=== PATIENT | male | born 1985 | race Caucasian/White ===

== ENCOUNTER 2017-06-01 18:12 | Emergency (ER) | payer MEDICARE, MEDICAID ==
--- NOTE | 2017-06-01 19:56 | ER Document Report ---
ED Medical Screen (RME) - General Chief Complaint: Psych Problem Stated Complaint: PSYCH EVAL Time Seen by Provider: 06/01/17 19:55 Notes: Patient lives in a [facility] and has a diagnosis of mild MR OCD and ADHD. Over the last several days patient has been very combative and violent. He was brought here by the [facility] staff for evaluation. TRAVEL OUTSIDE OF THE [place] IN LAST 30 DAYS: No - Related Data Allergies/Adverse Reactions: latex [Latex] Allergy (Severe, Verified 11/20/10 18:56) Urticaria metoclopramide HCl [From Reglan] Allergy (Mild, Verified 11/22/10 18:01) Hives adhesive tape [Adhesive Tape] Adverse Reaction (Mild, Verified 11/21/10 07:22) Generalized rash Past Medical History Neurological Medical History: Denies: Hx Seizures Renal/ Medical History: Denies: Hx Peritoneal Dialysis Physical Exam - Vital signs Vitals: Temp Pulse Resp BP Pulse Ox 98.4 F 102 H 16 151/76 H 97 06/01/17 18:40 06/01/17 18:40 06/01/17 18:40 06/01/17 18:40 06/01/17 18:40 Course - Vital Signs Vital signs: Temp Pulse Resp BP Pulse Ox 98.4 F 102 H 16 151/76 H 97 06/01/17 18:40 06/01/17 18:40 06/01/17 18:40 06/01/17 18:40 06/01/17 18:40
[2017-06-01 20:20] LABS: ABSOLUTE MONOCYTES (AUTO) 0.4 10^3/uL (0.1-1.4); ABSOLUTE NEUT (AUTO) 5.4 10^3/uL (1.7-8.2); BASOPHILS % (AUTO) 0.4 % (0-2); EOSINOPHILS % (AUTO) 0.4 % (0-6); HEMATOCRIT 30.3 % (37.9-51.0); HEMOGLOBIN 9.8 g/dL (13.5-17.0); HGB HCT DIFFERENCE -0.9; LYMPHOCYTES % (AUTO) 14.1 % (13-45); MEAN CORPUSCULAR HEMOGLOBIN 21.2 pg (27.0-33.4); MEAN CORPUSCULAR HGB CONC 32.2 g/dL (32.0-36.0); MEAN CORPUSCULAR VOLUME 66 fl (80-97); RED BLOOD COUNT 4.61 10^6/uL (4.35-5.55); RED CELL DISTRIBUTION WIDTH 17.9 % (11.5-14.0); SEGMENTED NEUTROPHILS % (AUTO) 79.1 % (42-78); WHITE BLOOD COUNT 6.8 10^3/uL (4.0-10.5)
[2017-06-01 20:23] LABS: APPEARANCE,URINE CLEAR; BILIRUBIN,URINE NEGATIVE (NEGATIVE); GLUCOSE, URINE NEGATIVE (NEGATIVE); KETONES,URINE NEGATIVE (NEGATIVE); LEUKOCYTE ESTERASE,URINE NEGATIVE (NEGATIVE); NITRITE,URINE NEGATIVE (NEGATIVE); PROTEIN,URINE NEGATIVE (NEGATIVE); URINE SPECIFIC GRAVITY 1.002; UROBILINOGEN,URINE NEGATIVE mg/dL (<2.0)
[2017-06-01 20:37] LABS: URINE BARBITURATES SCREEN NEGATIVE; URINE METHADONE SCREEN NEGATIVE; URINE OPIATES LOW NEGATIVE; URINE PHENCYCLIDINE SCREEN NEGATIVE
[2017-06-01 21:09] LABS: ALANINE AMINOTRANSFERASE 39 U/L (21-72); ALBUMIN 4.8 g/dL (3.5-5.0); ALKALINE PHOSPHATASE 60 U/L (38-126); ANION GAP 13 (5-19); ASPARTATE AMINO TRANSFERASE 33 U/L (17-59); BILIRUBIN,DIRECT 0.3 mg/dL (0.0-0.4); BILIRUBIN,TOTAL 0.4 mg/dL (0.2-1.3); BLOOD UREA NITROGEN 18 mg/dL (7-20); CALCIUM 9.9 mg/dL (8.4-10.2); CARBON DIOXIDE 27 mmol/L (22-30); CHLORIDE 102 mmol/L (98-107); GLUCOSE 96 mg/dL (75-110); POTASSIUM 4.1 mmol/L (3.6-5.0); SODIUM 141.9 mmol/L (137-145); TOTAL PROTEIN 7.3 g/dL (6.3-8.2)
[2017-06-01 21:10] LABS: ALCOHOL < 10 mg/dL (NONE DETECTED)
[2017-06-01] MEDS ORDERED: HYDROXYZINE PAMOATE 25 MG CAPSULE PO ONE (21:25)
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
[2017-06-02] MEDS ORDERED: ESCITALOPRAM OXALATE 10 MG TABLET PO SCH (08:00)
[2017-06-02] MEDS: FAMOTIDINE 20 MG TABLET PO SCH ×2 (09:04→18:03)
[2017-06-02] MEDS: SULFAMETHOXAZOLE/TRIMETHOPRIM 800-160 MG TABLET PO SCH ×2 (09:05→18:02)
[2017-06-02] MEDS: OLANZAPINE 5 MG TABLET PO SCH (09:06)
--- NOTE | 2017-06-02 09:51 | ER Document Report ---
Doctor's Note Notes: 06/02/17 09:50 Patient has been seen and evaluated resting comfortably no acute distress. Laboratory values previous provider note and vital signs have been evaluated. Patient otherwise looks to be stable for disposition/transfer.
[2017-06-02] MEDS ORDERED: FLUOXETINE HCL 20 MG CAPSULE PO SCH (13:30)
[2017-06-02] MEDS ORDERED: ACETAMINOPHEN 325 MG TABLET PO ONE (20:33)
[2017-06-03] MEDS: FAMOTIDINE 20 MG TABLET PO SCH (08:18)
[2017-06-03] MEDS: SULFAMETHOXAZOLE/TRIMETHOPRIM 800-160 MG TABLET PO SCH (08:19)
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
[2017-06-03] MEDS: OLANZAPINE 5 MG TABLET PO SCH (10:21)
[2017-06-03 10:40] VITALS: BP 140/67
== END 2017-06-03 10:50 | disposition home or self-care (01) ==
LOC: ER 18:12
DX: F31.9 Bipolar disorder, unspecified (principal); F70 Mild intellectual disabilities; F41.9 Anxiety disorder, unspecified; R45.851 Suicidal ideations; Z79.899 Other long term (current) drug therapy; Z98.2 Presence of cerebrospinal fluid drainage device; Z91.040 Latex allergy status; Z88.8 Allergy status to other drugs, medicaments and biological substances
CPT/HCPCS: 99284; 36415; 80307 ×4; 85025; 80053; 81001; A9270 ×4